=== PATIENT | female | born 1985 | race Caucasian/White ===

== ENCOUNTER 2017-08-01 20:14 | Emergency (ER) | payer OTHER ==
[2017-08-01 20:47] LABS: BASOPHILS 0.4 % (0-2); HEMATOCRIT 36.8 % (36.0-48.0); HEMOGLOBIN 12.6 g/dL (12-16); IMMATURE GRANULOCYTES 0.1 % (0-5); LYMPHOCYTES 33.7 % (15-50); MCH 29.8 pg (26.0-34.0); MCHC 34.2 g/dL (31.0-37.0); MEAN PLATELET VOLUME 9.3 fL (7.4-10.4); MONOCYTES 9.5 % (2-11); NEUTROPHILS 54.3 % (40-80); PLATELET COUNT 223 10x3/uL (130-400); RBC 4.23 10x6/uL (4.00-5.40); RDW 12.8 % (11.5-14.5); WBC 7.5 10x3/uL (4.8-10.8)
[2017-08-01 20:53] LABS: APPEARANCE CLEAR (CLEAR); BACTERIA NONE SEEN /hpf (NONE SEEN); BILIRUBIN NEGATIVE (NEGATIVE); COLOR YELLOW (YELLOW); EPITHELIAL CELLS RARE /hpf (0-5); GLUCOSE NEGATIVE (NEGATIVE); KETONE NEGATIVE (NEGATIVE); NITRITE NEGATIVE (NEGATIVE); PROTEIN NEGATIVE (NEGATIVE); RED CELLS - URINE 0-5 /hpf (0-5); WHITE CELLS - URINE 0-5 /hpf (0-5)
[2017-08-01 20:55] LABS: HCG SERUM NEGATIVE (NEGATIVE)
[2017-08-01 21:01] LABS: ALBUMIN 3.8 g/dL (3.4-5.0); ANION GAP 11.3 mmol/L (8-16); BILIRUBIN - TOTAL 0.44 mg/dL (0.2-1.3); CALCIUM 8.8 mg/dL (8.5-10.1); POTASSIUM - SERUM 3.3 mmol/L (3.5-5.1); PROTEIN - SERUM 7.6 g/dL (6.4-8.2)
== END 2017-08-01 23:10 | disposition home or self-care (01) ==
LOC: D.ER 20:14
PROVIDERS: Physician Assistant Medical
DX: R10.9 Unspecified abdominal pain (principal); R11.2 Nausea with vomiting, unspecified; R30.0 Dysuria